=== PATIENT | male | born 1965 | race African-American/Black ===

== ENCOUNTER 2021-11-29 09:00 | Day surgery (SDC) | payer OTHER, BC ==
[2021-11-26 14:42] VITALS: BMI 33.7
[2021-11-29 11:04] VITALS: RESP 20; TEMP 97.8
[2021-11-29 11:20] VITALS: BP 116/71; PULSE 79
== END 2021-11-29 11:20 | disposition home or self-care (01) ==
LOC: FASU-ENDO 09:00
PROVIDERS: ATTEND Internal Medicine Gastroenterology
PROC: 0DBN8ZX Excision of Sigmoid Colon, Via Natural or Artificial Opening Endoscopic, Diagnostic (ICD-10-PCS; principal; 2021-11-29 10:21)
DX: Z12.11 Encounter for screening for malignant neoplasm of colon (principal); K63.5 Polyp of colon; K64.1 Second degree hemorrhoids
CPT/HCPCS: 82962; 88305-TC